=== PATIENT | female | born 1995 | race Caucasian/White ===

== ENCOUNTER 2019-03-04 04:31 | Emergency (ER) | payer BC ==
--- NOTE | 2019-03-04 04:35 | ER Report ---
History and Physical Time Seen By MD: 04:35 (OMAR SUH DO) HPI/ROS CHIEF COMPLAINT: Periumbilical abdominal pain HISTORY OF PRESENT ILLNESS: Patient is a 23-year-old female here with complaints of periumbilical abdominal pain which started yesterday morning when the patient woke up. Patient reports constant progressive pain which acutely worsened overnight prompting evaluation. Patient has been tolerating oral intake, has been passing bowel movements without issue. Denies prior history of abdominal surgeries, nausea, vomiting, blood in the stools or urine. Patient is afebrile, mildly tachycardic, normotensive at time of evaluation. REVIEW OF SYSTEMS: Constitutional: No fever, no chills. Eyes: No discharge. ENT: No sore throat. Cardiovascular: No chest pain, no palpitations. Respiratory: No cough, no shortness of breath. Gastrointestinal: + Periumbilical abdominal pain, no vomiting. Genitourinary: No hematuria. Musculoskeletal: No back pain. Skin: No rashes. Neurological: No headache. (OMAR SUH DO) Allergies: Coded Allergies: No Known Drug Allergies (Unverified , 03/04/19) Constitutional Vital Sign - Last 24 Hours 03/04/19 03/04/19 03/04/19 03/04/19 04:36 04:38 05:00 05:01 Temp 98.0 Pulse 120 99 Resp 16 B/P (MAP) 135/80 135/80 (98) 118/66 (83) Pulse Ox 93 94 O2 Delivery Room Air 03/04/19 03/04/19 03/04/19 03/04/19 05:32 06:00 06:01 06:30 B/P (MAP) 124/80 (95) 126/72 (90) Pulse Ox 94 95 Intake and Output 03/03/19 03/03/19 03/04/19 15:00 23:00 07:00 Intake Total 1000 ml Balance 1000 ml (LARA CAMPBELL MD) Physical Exam General Appearance: The patient is alert, has no immediate need for airway protection and no signs of toxicity. Uncomfortable appearing Eyes: Pupils equal and round no pallor or injection. ENT, Mouth: Mucous membranes are moist. Respiratory: There are no retractions, lungs are clear to auscultation. Cardiovascular: Regular tachycardia Gastrointestinal: Abdomen is soft and + tender in the periumbilical distribution, no masses, bowel sounds normal. No rebound or guarding Neurological: No focal neurological deficit Skin: Warm and dry, no rashes. Musculoskeletal: Neck is supple non tender. Extremities are nontender, nonswollen and have full range of motion. DIFFERENTIAL DIAGNOSIS: After history and physical exam differential diagnosis was considered for abdominal pain including but not limited to appendicitis, cholecystitis, gastritis and urinary tract infection. (OMAR SUH DO) Medical Decision Making Data Points Result Diagram: 03/04/19 0444 03/04/19 0444 Laboratory Hematology Test 03/04/19 04:37 03/04/19 04:44 Urine Color Yellow Urine Clarity Clear Urine pH 6.0 pH (4.8-9.5) Urine Specific Darwin 1.013 Urine Protein Negative mg/dL (NEGATIVE) Urine Glucose (UA) Negative mg/dL (NEGATIVE) Urine Ketones Negative mg/dL (NEGATIVE) Urine Blood Small (NEGATIVE) Urine Nitrite Negative (NEGATIVE) Urine Bilirubin Negative (NEGATIVE) Urine Urobilinogen Negative mg/dL (0.2-1.9) Urine Leukocyte Esterase Negative (NEGATIVE) Urine RBC 2 /HPF (0-2/HPF) Urine WBC 1 /HPF (0-5/HPF) Urine Squamous Epithelial Cells Many /LPF (</=FEW) Urine Bacteria Few /HPF (NONE-FEW) Urine Mucus None /HPF (NONE-FEW) Red Blood Count 4.63 M/uL (4.17-5.56) Mean Corpuscular Volume 90.2 fL (80.0-96.0) Mean Corpuscular Hemoglobin 30.2 pg (26.0-33.0) Mean Corpuscular Hemoglobin Concent 33.5 g/dL (32.0-36.0) Red Cell Distribution Width 12.9 % (11.5-14.5) Mean Platelet Volume 7.4 fL (7.2-11.1) Neutrophils (%) (Auto) 51.4 % (39.4-72.5) Lymphocytes (%) (Auto) 31.5 % (17.6-49.6) Monocytes (%) (Auto) 15.4 % (4.1-12.4) Eosinophils (%) (Auto) 0.9 % (0.4-6.7) Basophils (%) (Auto) 0.8 % (0.3-1.4) Nucleated RBC Relative Count (auto) 0.0 /100WBC Neutrophils # (Auto) 4.2 K/uL (2.0-7.4) Lymphocytes # (Auto) 2.6 K/uL (1.3-3.6) Monocytes # (Auto) 1.3 K/uL (0.3-1.0) Eosinophils # (Auto) 0.1 K/uL (0.0-0.5) Basophils # (Auto) 0.1 K/uL (0.0-0.1) Nucleated RBC Absolute Count (auto) 0.00 K/uL Sodium Level 139 mmol/L (137-145) Potassium Level 3.4 mmol/L (3.5-5.0) Chloride Level 103 mmol/L (98-107) Carbon Dioxide Level 25 mmol/L (22-31) Blood Urea Nitrogen 11 mg/dl (7-18) Creatinine 0.60 mg/dl (0.52-1.04) Glomerular Filtration Rate Calc > 60.0 Random Glucose 93 mg/dl (75-110) Calcium Level 9.5 mg/dl (8.4-10.2) Total Bilirubin 0.4 mg/dl (0.2-1.3) Aspartate Amino Transf (AST/SGOT) 25 U/L (0-35) Alanine Aminotransferase (ALT/SGPT) 33 U/L (0-56) Alkaline Phosphatase 72 U/L (0-126) C-Reactive Protein 1.0 mg/dl (<1.0) Total Protein 7.9 g/dl (6.3-8.2) Albumin 4.6 g/dl (3.5-5.0) Lipase 93 U/L (23-300) Human Chorionic Gonadotropin, Qual Negative (NEGATIVE) Chemistry Test 03/04/19 04:37 03/04/19 04:44 Urine Color Yellow Urine Clarity Clear Urine pH 6.0 pH (4.8-9.5) Urine Specific Darwin 1.013 Urine Protein Negative mg/dL (NEGATIVE) Urine Glucose (UA) Negative mg/dL (NEGATIVE) Urine Ketones Negative mg/dL (NEGATIVE) Urine Blood Small (NEGATIVE) Urine Nitrite Negative (NEGATIVE) Urine Bilirubin Negative (NEGATIVE) Urine Urobilinogen Negative mg/dL (0.2-1.9) Urine Leukocyte Esterase Negative (NEGATIVE) Urine RBC 2 /HPF (0-2/HPF) Urine WBC 1 /HPF (0-5/HPF) Urine Squamous Epithelial Cells Many /LPF (</=FEW) Urine Bacteria Few /HPF (NONE-FEW) Urine Mucus None /HPF (NONE-FEW) White Blood Count 8.2 k/uL (4.5-11.0) Red Blood Count 4.63 M/uL (4.17-5.56) Hemoglobin 14.0 g/dL (12.0-16.0) Hematocrit 41.8 % (34.0-47.0) Mean Corpuscular Volume 90.2 fL (80.0-96.0) Mean Corpuscular Hemoglobin 30.2 pg (26.0-33.0) Mean Corpuscular Hemoglobin Concent 33.5 g/dL (32.0-36.0) Red Cell Distribution Width 12.9 % (11.5-14.5) Platelet Count 297 K/uL (150-450) Mean Platelet Volume 7.4 fL (7.2-11.1) Neutrophils (%) (Auto) 51.4 % (39.4-72.5) Lymphocytes (%) (Auto) 31.5 % (17.6-49.6) Monocytes (%) (Auto) 15.4 % (4.1-12.4) Eosinophils (%) (Auto) 0.9 % (0.4-6.7) Basophils (%) (Auto) 0.8 % (0.3-1.4) Nucleated RBC Relative Count (auto) 0.0 /100WBC Neutrophils # (Auto) 4.2 K/uL (2.0-7.4) Lymphocytes # (Auto) 2.6 K/uL (1.3-3.6) Monocytes # (Auto) 1.3 K/uL (0.3-1.0) Eosinophils # (Auto) 0.1 K/uL (0.0-0.5) Basophils # (Auto) 0.1 K/uL (0.0-0.1) Nucleated RBC Absolute Count (auto) 0.00 K/uL Glomerular Filtration Rate Calc > 60.0 Calcium Level 9.5 mg/dl (8.4-10.2) Total Bilirubin 0.4 mg/dl (0.2-1.3) Aspartate Amino Transf (AST/SGOT) 25 U/L (0-35) Alanine Aminotransferase (ALT/SGPT) 33 U/L (0-56) Alkaline Phosphatase 72 U/L (0-126) C-Reactive Protein 1.0 mg/dl (<1.0) Total Protein 7.9 g/dl (6.3-8.2) Albumin 4.6 g/dl (3.5-5.0) Lipase 93 U/L (23-300) Human Chorionic Gonadotropin, Qual Negative (NEGATIVE) Urinalysis Test 03/04/19 04:37 Urine Color Yellow Urine Clarity Clear Urine pH 6.0 pH (4.8-9.5) Urine Specific Darwin 1.013 Urine Protein Negative mg/dL (NEGATIVE) Urine Glucose (UA) Negative mg/dL (NEGATIVE) Urine Ketones Negative mg/dL (NEGATIVE) Urine Blood Small (NEGATIVE) Urine Nitrite Negative (NEGATIVE) Urine Bilirubin Negative (NEGATIVE) Urine Urobilinogen Negative mg/dL (0.2-1.9) Urine Leukocyte Esterase Negative (NEGATIVE) Urine RBC 2 /HPF (0-2/HPF) Urine WBC 1 /HPF (0-5/HPF) Urine Squamous Epithelial Cells Many /LPF (</=FEW) Urine Bacteria Few /HPF (NONE-FEW) Urine Mucus None /HPF (NONE-FEW) (LARA CAMPBELL MD) EKG/Imaging Imaging PATIENT NAME: Muriel Corona : 1995 MR: [id number] V: [id number] EXAM DATE: ORDERING PHYSICIAN: OMAR SUH TECHNOLOGIST: Location: [facility] Patient: Muriel Corona : 1995 Visit/Account:[id number] Date of Sevice: 03/04/2019 CT of the abdomen and pelvis contrast: Indication: Periumbilical abdominal pain. Technique: Helical CT was performed through the abdomen and pelvis following IV contrast enhancement with 75 cc of [id number]. Multiplanar reconstructions are reviewed. One of the following dose optimization techniques was utilized in the performance of this exam: Automated exposure control; adjustment of the mA and/or kV according to the patient's size; or use of an iterative reconstruction technique. Specific details can be referenced in the facility's radiology CT exam operational policy. Comparison: None available. Lower lung collado: No parenchymal or pleural abnormality is identified. Liver: Normal in size, shape, and density. The venous structures appear unremarkable. Gallbladder/biliary tree: The gallbladder is normal in size and homogeneous in density. The bile ducts are not dilated. Pancreas: Normal in size, shape, and density. There are no signs of peripancreatic inflammation or fluid. Spleen: Normal in size, shape, and density. Adrenal glands: Within normal limits. Kidneys/urinary bladder: The kidneys are normal in size, shape, and density. There is incidental note of a few small cysts in both kidneys. There are no signs of urinary tract calculus or obstructive uropathy. The bladder appears homogeneous and unremarkable. Intestinal structures: Unremarkable, as visualized. There are no signs of obstruction, focal dilatation, or focal inflammatory changes. The appendix is best seen on coronal images 28-31. There are no signs of periappendiceal i nflammation or fluid. Pelvis: There is a 2.5 cm cyst in the left ovary. The right ovary is unremar kable, as visualized. The uterus appears unremarkable. There is a small amount of free fluid in the pelvis. No circumscribed fluid collection is identified. Aorta and vascular structures: Within normal limits. Ascites or fluid collections: As above. No additional findings. Skeletal structures: Intact and unremarkable. Impression: 2.5 cm left ovarian cyst. Small amount of free fluid in the pelvis. The appendix appears unremarkable. (OMAR SUH DO) ED Course/Re-evaluation ED Course Patient is a 23-year-old female here with complaints of periumbilical abdominal pain since yesterday morning which acutely worsened overnight. Patient denies prior history of abdominal surgeries. Patient is afebrile, mildly tachycardic with a regular rhythm, normotensive at time of evaluation. Patient was given an IV fluid bolus, CT imaging was completed and showed a ovarian cyst on the left ovary. There is no leukocytosis, CRP was unremarkable, urinalysis showed no signs of infectious etiology. Upon further discussion with the patient, she does report episodic severe pain which seems to acutely of worsened prompting her evaluation today. Intra-abdominal imaging showed no acute findings, appendix was unremarkable. Based on this discussion, in spite of their being a small amount of free fluid in the pelvis likely secondary to cyst rupture, decision was made to complete a transvaginal ultrasound to rule out ovarian vascular compromise. I updated the patient regarding the plan and she voiced understanding. Patient was signed out to Dr. Campbell at shift change pending ultrasound findings. Decision to Disposition Date: Mar 04, 2019 Decision to Disposition Time: 07:00 (OMAR SUH DO) ED Course ED medical decision making 21-year-old female endorsed me by Dr. Suh at time of shift change coming of abdominal pain negative CT ultrasound pending ruling out torsion she has good blood flow to both ovaries other is a collapsed ovarian cyst on the left side and a cystic structure noted increased arterial flow to the right versus left but both have adequate flow with diagnosing her today with ovarian cysts and follow up with [facility] Decision to Disposition Date: Mar 04, 2019 Decision to Disposition Time: 08:52 (LARA CAMPBELL MD) Depart Departure Latest Vital Signs Vital Signs Date Time Temp Pulse Resp B/P (MAP) Pulse Ox O2 Delivery O2 Flow Rate FiO2 03/04/19 06:30 95 03/04/19 06:00 126/72 (90) 03/04/19 05:01 99 03/04/19 04:36 98.0 16 Room Air (LARA CAMPBELL MD) Impression: Primary Impression: Abdominal pain Additional Impression: Ovarian cyst Condition: Improved Disposition: HOME OR SELF-CARE Referrals: MAGUI JONES MD 5 Days Patient Instructions: Abdominal Pain (ED), Ovarian Cyst (DC), Ruptured Ovarian Cyst (DC) Problem Qualifiers OMAR SUH DO Mar 04, 2019 04:35 LARA CAMPBELL MD Mar 04, 2019 08:52
[2019-03-04] MEDS ORDERED: NS(*) 0.9% 1000 ML BAG 1,000 ML IV ONE ×2 (04:47→06:35)
[2019-03-04 05:00] LABS: PLATELET COUNT, AUTOMATED 297 K/uL (150-450)
[2019-03-04] MEDS ORDERED: IOPAMIDOL 76% 100 ML INFUS BTL 100 ML ONE (05:01)
[2019-03-04 06:00] VITALS: BP 126/72
--- NOTE | 2019-03-04 06:13 | RADIOLOGY IMAGING REPORT ---
FACILITY: [facility] - [place] PATIENT NAME: Muriel Corona : 1995 MR: [id number] V: [id number] EXAM DATE: ORDERING PHYSICIAN: OMAR RODRÍGUEZ TECHNOLOGIST: Location: [facility] Patient: Muriel Corona : 1995 Visit/Account:[id number] Date of Sevice: 03/04/2019 CT of the abdomen and pelvis contrast: Indication: Periumbilical abdominal pain. Technique: Helical CT was performed through the abdomen and pelvis following IV contrast enhancement with 75 cc of Isovue-370. Multiplanar reconstructions are reviewed. One of the following dose optimization techniques was utilized in the performance of this exam: Autom ated exposure control; adjustment of the mA and/or kV according to the patient's size; or use of an i terative reconstruction technique. Specific details can be referenced in the facility's radiology CT exam operational policy. Comparison: None available. Lower lung collado: No parenchymal or pleural abnormality is identified. Liver: Normal in size, shape, and density. The venous structures appear unremarkable. Gallbladder/biliary tree: The gallbladder is normal in size and homogeneous in density. The bile duct s are not dilated. Pancreas: Normal in size, shape, and density. There are no signs of peripancreatic inflammation or fl uid. Spleen: Normal in size, shape, and density. Adrenal glands: Within normal limits. Kidneys/urinary bladder: The kidneys are normal in size, shape, and density. There is incidental note of a few small cysts in both kidneys. There are no signs of urinary tract calculus or obstructive uropathy. The bladder appears homogeneous and unremarkable. Intestinal structures: Unremarkable, as visualized. There are no signs of obstruction, focal dilatati on, or focal inflammatory changes. The appendix is best seen on coronal images 28-31. There are no si gns of periappendiceal inflammation or fluid. Pelvis: There is a 2.5 cm cyst in the left ovary. The right ovary is unremarkable, as visualized. The uterus appears unremarkable. There is a small amount of free fluid in the pelvis. No circumscribed f luid collection is identified. Aorta and vascular structures: Within normal limits. Ascites or fluid collections: As above. No additional findings. Skeletal structures: Intact and unremarkable. Impression: 2.5 cm left ovarian cyst. Small amount of free fluid in the pelvis. The appendix appears unremarkable. Report Dictated By: Santos Powell MD at 03/04/2019 5:48 AM Report E-Signed By: Santos Powell MD at 03/04/2019 6:08 AM WSN:[id number]
--- NOTE | 2019-03-04 08:48 | RADIOLOGY IMAGING REPORT ---
FACILITY: [facility] - [place] PATIENT NAME: Muriel Corona : 1995 MR: [id number] V: [id number] EXAM DATE: ORDERING PHYSICIAN: LARA CAMPBELL TECHNOLOGIST: Location: [facility] [place] Patient: Muriel Corona : 1995 Visit/Account:[id number] Date of Sevice: 03/04/2019 PELVIC HISTORY: ro torsion TECHNIQUE: Transabdominal ultrasound pelvis. COMPARISON: CT abdomen pelvis performed today FINDINGS: Uterus: ; 6.8 cm length x 2.8 cm AP x 4.3 cm transverse. Myometrium: Unremarkable. Endometrium: Unremarkable; double thickness 9.1 mm. Cervix: Grossly negative. Ovaries: Right - 3.8 x 3 x 1.8 cm. There is mild increased arterial blood flow to the right ovary by jennie hnologist notation. The venous flow to the right ovary was not ideally seen Left - 3.9 x 3.2 x 2.2 cm. There is a 1.1 x 0.2 x 2.1 cm cystic structure in the left ovary whi ch may represent a collapsing cyst Blood flow is documented in each ovary by duplex Doppler ultrasound. Adnexa: Grossly unremarkable. Free pelvic fluid: The free fluid identified on the recent CT was not well identified by ultrasound. IMPRESSION: Is mild increased arterial blood flow on the right ovary by technologist notation. Arterial and veno us flow identified in the left ovary There is a 1.1 x 0.2 x 2.1 cm cystic structure in the left ovary which may represent a collapsing cys t. Report Dictated By: Brit Howard MD at 03/04/2019 8:38 AM Report E-Signed By: Brit Howard MD at 03/04/2019 8:44 AM WSN:[id number]
[2019-03-09] MEDS ORDERED: ETHI1TAB16 PO (14:12)
== END 2019-03-04 09:05 | disposition home or self-care (01) ==
LOC: ER 05:27
DX: N83.202 Unspecified ovarian cyst, left side (principal)
CPT/HCPCS: 74177; 76856; 81001; 83690; 84703; 85025; 86140; 96360; 96361; 99284; J7030; Q9967; 82040; 82247; 82310; 82374; 82435; 82565; 82947; 84075; 84132; 84155; 84295; 84450; 84460; 84520